=== PATIENT | male | born 1975 ===

== ENCOUNTER 2019-12-19 14:14 | Emergency (ER) | payer BC ==
[2019-12-19] MEDS ORDERED: Bacitracin/Neomycin/Polymyxin B Oint 0.9 GM U/D Packet ONE (14:52)
--- NOTE | 2019-12-19 15:14 | EDM.PDOC ---
ED HPI GENERAL MEDICAL PROBLEM - General Chief Complaint: Upper Extremity Injury/Pain Stated Complaint: RIGHT THUMB Time Seen by Provider: 12/19/19 14:27 Source of Information: Reports: Patient History Limitations: Reports: No Limitations - History of Present Illness INITIAL COMMENTS - FREE TEXT/NARRATIVE: Patient comes to ER with complaint of acute traumatic amputation/avulsion injury of distal right thumb tip secondary to table saw. No other complaints/ injuries. Tetanus updated 5 yrs ago. 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 [No Known Home Meds] 12/19/19 [History] Past Medical History - Past Health History Medical/Surgical History: Denies Medical/Surgical History Social & Family History - Tobacco Use Smoking Status *Q: Never Smoker Second Hand Smoke Exposure: No - Caffeine Use Caffeine Use: Reports: Soda - Alcohol Use Alcohol Use History: No Alcohol Use Frequency: Rarely - Recreational Drug Use Recreational Drug Use: No Review of Systems - Review of Systems Review Of Systems: Comprehensive ROS is negative, except as noted in HPI. ED EXAM, GENERAL - Physical Exam Exam: See Below Exam Limited By: No Limitations General Appearance: Alert, WD/WN, No Apparent Distress Eye Exam: Bilateral Eye: EOMI, PERRL Ears: Hearing Grossly Normal Nose: No: Nasal Deformity, Nasal Swelling, Nasal Drainage Throat/Mouth: Normal Lips, Normal Voice, No Airway Compromise Head: Atraumatic, Normocephalic Neck: Supple Respiratory/Chest: No Respiratory Distress Extremities: Other (exam of right hand shows missing skin distal right thumb tip. Saw cut through dermis/epidermis and minimally through end of nail. No active bleeding. Superficial overall with no penetration into bone/deep tissue space. Tendon function intact. ) Neurological: Alert, Oriented, Normal Cognition, Normal Gait, No Motor/Sensory Deficits Psychiatric: Normal Affect, Normal Mood Skin Exam: Warm, Dry Course - Vital Signs Last Recorded V/S: Last Vital Signs Temp 36.6 C 12/19/19 14:15 Pulse 75 12/19/19 14:15 Resp 20 12/19/19 14:15 BP 148/86 H 12/19/19 14:15 Pulse Ox 98 04/19/20 14:15 - Orders/Labs/Meds Meds: Medications Discontinued Medications Generic Name Dose Route Start Last Admin Trade Name Yesenia PRN Reason Stop Dose Admin Neomycin/Polymyxin/Bacitracin Confirm 12/19/19 14:52 12/19/19 15:02 Triple Antibiotic Oint Administered 12/19/19 14:53 1 each Dose Administration 1 each .ROUTE .STK-MED ONE - Re-Assessments/Exams Free Text/Narrative Re-Assessment/Exam: 12/19/19 15:18 BP elevated but no history hypertension. Suspect due to discomfort/anxiety from saw injury. Overall minimal loss of tissue noted, and no deep involvement identified. Will need to granulate in. Wound soaked in Betadine. Dressed with adaptic nonstick dressing over antibiotic ointment by nursing staff. Wound care reviewed at length with patient. Precautions reviewed. To follow up for wound checks as needed while wound granulates and heals. Follow up if any concerns of infection or other problems/concerns. Departure - Departure Time of Disposition: 15:12 Disposition: Home, Self-Care 01 Condition: Good Clinical Impression: Avulsion of skin of right thumb Qualifiers: Encounter type: initial encounter Qualified Code(s): S61.001A - Unspecified open wound of right thumb without damage to nail, initial encounter - Discharge Information *PRESCRIPTION DRUG MONITORING PROGRAM REVIEWED*: Not Applicable *COPY OF PRESCRIPTION DRUG MONITORING REPORT IN PATIENT JEANETTE: Not Applicable Instructions: Traumatic Finger Amputation, Deep Skin Avulsion Referrals: PCP,None [Primary Care Provider] - Forms: ED Department Discharge Additional Instructions: Wound care daily as discussed in ER while skin heals. Have wound rechecked if you have any concerns about infection/problems! Sepsis Event Note - Evaluation Sepsis Screening Result: No Definite Risk - Focused Exam Vital Signs: Vital Signs Temp Pulse Resp BP Pulse Ox 12/19/19 14:15 36.6 C 75 20 148/86 H 98 Date Exam was Performed: 12/19/19 Time Exam was Performed: 15:14
== END 2019-12-19 15:20 | disposition home or self-care (01) ==
LOC: LL.ED 14:14
DX: S61.001A Unspecified open wound of right thumb without damage to nail, initial encounter (principal); W27.0XXA Contact with workbench tool, initial encounter
CPT/HCPCS: 99283